=== PATIENT | female | born 1965 | race Caucasian/White ===

== ENCOUNTER → 2018-01-23 08:09 | Outpatient (CLI) | payer OTHER ==
[~2018-01-23 08:09] MED LIST: HYDROCODON-ACE1 EAC7 PO; NEURONTIN 300300 MG PO; TRAZODONE HCL100 MG
[2018-02-09 09:00] VITALS: BMI 38.1
== END | disposition home or self-care (01) ==
LOC: D.US 08:09
DX: R10.11 Right upper quadrant pain (principal)

== ENCOUNTER 2018-02-09 08:20 | Day surgery (SDC) | payer OTHER ==
[2018-02-06 13:06] LABS: HEMATOCRIT 45.2 % (36.0-48.0); HEMOGLOBIN 14.9 g/dL (12-16); MCH 30.3 pg (26.0-34.0); MCV 91.9 fL (80.0-100.0); MEAN PLATELET VOLUME 11.7 fL (7.4-10.4); RBC 4.92 10x6/uL (4.00-5.40); WBC 7.1 10x3/uL (4.8-10.8)
[~2018-02-09] VITALS: Ht 157.5 cm; Wt 94.3 kg
[~2018-02-09 08:20] MED LIST changes: -HYDROCODON-ACE1 EAC7 PO
[2018-02-09 09:00] VITALS: BP 105/81; Ht 157.5 cm; Wt 94.3 kg
[2018-02-09 09:21] LABS: HCG URINE NEGATIVE (NEGATIVE)
[2018-02-09] MEDS ORDERED: HYDROCODON-ACE1 EAC7 PO (11:13)
== END 2018-02-09 14:10 | disposition home or self-care (01) ==
LOC: D.OPS 08:20 → D.PAN 10:15 → D.OPS 10:15 → D.PAN 11:15 → D.OPS 11:15
PROVIDERS: Anesthesiology; Surgery
DX: K80.20 Calculus of gallbladder without cholecystitis without obstruction (principal)